=== PATIENT | male | born 1955 | race Caucasian/White ===

== ENCOUNTER 2017-05-11 00:15 | Emergency (ER) | payer OTHER ==
[2017-05-11 00:22] VITALS: RESP 16; TEMP 97.9
[2017-05-11] MEDS ORDERED: NS 1,000 ML IV ONE ×3 (00:23→03:42)
--- NOTE | 2017-05-11 00:24 | CPEKG ---
Heart Rate: 67 RR Interval: 896 P-R Interval: 192 QRSD Interval: 92 QT Interval: 400 QTC Interval: 423 P [place]: 61 QRS [place]: 78 T Wave [place]: 65 EKG Severity - NORMAL ECG - EKG Impression: SINUS RHYTHM Electronically Signed By: Neal Archuleta 13-May-2017 06:39:48
--- NOTE | 2017-05-11 00:29 | EDPHY ---
H & P Stated Complaint: syncope Time Seen by Provider: 05/11/17 00:25 HPI/ROS: HPI CHIEF COMPLAINT: Syncope, head injury. HISTORY OF PRESENT ILLNESS: Patient is a very pleasant 61-year-old male, he does have a history of MS, presents emergency room by EMS after he had a syncopal episode in the bathroom. The was asleep and heard a thud in the bathroom and found him on the ground he was in a spine position he had head strike against the ground. He sustained a right posterior head hematoma. The patient does not remember going to the bathroom or using the bathroom or the events after he fell. He does not remember falling. He denies chest pain or shortness of breath, denies palpitations. Denies focal weakness. Patient does not recall any the events. He reports to me that he had a rather normal day, no strenuous activity, however he does state that he had wine and Tequila this evening. Denies any current complaints except a right posterior headache very mild 3/10. He arrives by EMS stable vital signs. reports that he falls on average 4 times a year. He denies any cardiovascular disease or history of DC or CVA. Past Medical History: MS Past Surgical History: No recent surgery Social History: A lives locally, at bedside, presents by EMS, alcohol this evening, denies illicit drugs. Family History: Noncontributory ROS REVIEW OF SYSTEMS: A comprehensive 10 point review of systems is otherwise negative aside from elements mentioned in the history of present illness. Exam Constitutional appears nontoxic, triage nursing summary reviewed, vital signs reviewed, awake/alert. Vital signs stable Eyes normal conjunctivae and sclera, EOMI, PERRLA. HENT head/neck: Right occiput shows a right scalp hematoma, no midline cervical spine pain or step-offs, otherwise atraumatic head and neck exam moist mucus membranes, no epistaxis, neck supple/ no meningismus, no raccoon eyes. Respiratory clear to auscultation bilaterally, normal breath sounds, no respiratory distress, no wheezing. Cardiovascular rate normal, regular rhythm, no murmur, no edema, distal pulses normal. Gastrointestinal soft, non-tender, no rebound, no guarding, normal bowel sounds, no distension, no pulsatile mass. Genitourinary no CVA tenderness. Musculoskeletal no midline vertebral tenderness, full range of motion, no calf swelling, no tenderness of extremities, no meningismus, good pulses, neurovascularly intact. Skin pink, warm, & dry, no rash, skin atraumatic. Neurologic awake, alert and oriented x 3, AAOx3, moves all 4 extremities equally, motor intact, sensory intact, CN II-XII intact, normal cerebellar, normal vision, normal speech. Psychiatric normal mood/affect. Heme/Lymph/Immune no lymphadenopathy. 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 Impression time of EKG 0020: This is sinus rhythm rate of 67, no ST elevation no ST depression no significant T-wave abnormalities. No signs of cardiac arrhythmia. No WPW or Brugada. 1232: We did check orthostatic vital signs when the patient goes from lying to standing the blood pressure goes from 0120 systolic laying 80 systolic standing. This is a 40 point drop with positional changes, he heart rate went from 60s to 80s. Lying to standing. These indicate positive orthostatic vital signs. This most likely the cause of his syncopal episode while urinating. Will aggressively hydrate here in emergency room and repeat. CT head without contrast and CT cervical spine without contrast negative for acute traumatic injury. There is soft tissue hematoma noted over the right scalp. No subdural, no skull fracture. Called to me by Dr. Garcia 0234: Patient resting comfortably. He did receive 2 L here in the emergency room for significant orthostatic hypotension is repeat orthostatics are much improved. Still feels a little lightheaded. Currently is getting 3 L fluid will re-evaluate. He has no chest pain or shortness of breath. There has been no signs of cardiac arrhythmia on the monitor. Plan for re-evaluation after 3rd L. Blood work has been reviewed is unremarkable. CTs are negative for acute bleed. Scalp hematoma noted. 0300: Patient re-evaluated. He ambulated well throughout the emergency room with a steady gait. He states he feels fine. He denies feeling lightheadedness. Has no chest pain or shortness of breath. Does not feel like he is going to pass out. He would like to go home. EKG interpretation by me on record in [facility] system. Impression this is a repeat EKG time a repeat EKG 2:57 a.m., sinus rhythm rate of 70 no acute ischemic changes on the EKG or signs of cardiac arrhythmia. Source: Patient, EMS - Personal History Current Tetanus/Diphtheria Vaccine: Unsure Current Tetanus Diphtheria and Acellular Pertussis (TDAP): Unsure - Medical/Surgical History Hx Asthma: No Hx Chronic Respiratory Disease: No Hx Diabetes: No Hx Cardiac Disease: No Hx Renal Disease: No Hx Cirrhosis: No Hx Alcoholism: No Hx HIV/AIDS: No Hx Splenectomy or Spleen Trauma: No Other PMH: depression, MS - Social History Smoking Status: Never smoked Constitutional: Initial Vital Signs Temperature (C) 36.6 C 05/11/17 00:18 Heart Rate 68 05/11/17 00:18 Respiratory Rate 16 05/11/17 00:18 Blood Pressure 111/71 05/11/17 00:18 O2 Sat (%) 100 05/11/17 00:18 O2 Delivery Mode Room Air Allergies/Adverse Reactions: Tetanus Vaccines and Toxoid Allergy (Verified 05/07/17 11:52) Other-Enter Comments Home Medications: Medication Instructions Recorded Cholecalciferol (Vitamin D3) 05/07/17 Lexapro 05/07/17 Tizanidine HCl 05/07/17 Tysabri 05/07/17 Vitamin A 05/07/17 Vitamin B Complex/Folic Acid 05/07/17 Medical Decision Making - Data Points Laboratory Results: Laboratory Results 05/11/17 00:20 05/11/17 00:20 05/11/17 05/11/17 05/11/17 03:00 00:20 00:20 WBC RBC Hgb Hct MCV MCH MCHC RDW Plt Count MPV Neut % (Auto) Lymph % (Auto) [place] % (Auto) Eos % (Auto) Baso % (Auto) Nucleat RBC Rel Count Absolute Neuts (auto) Absolute Lymphs (auto) Absolute Monos (auto) Absolute Eos (auto) Absolute Basos (auto) Absolute Nucleated RBC Immature Gran % Immature Gran # PT 13.8 SEC SEC (12.0-15.0) INR 1.04 (0.83-1.16) APTT 26.1 SEC SEC (23.0-38.0) Sodium 145 mEq/L mEq/L (135-145) Potassium 4.1 mEq/L mEq/L (3.5-5.2) Chloride 109 mEq/L mEq/L (97-110) Carbon Dioxide 26 mEq/l mEq/l (22-31) Anion Gap 10 mEq/L mEq/L (8-16) BUN 11 mg/dL mg/dL (7-23) Creatinine 0.8 mg/dL mg/dL (0.7-1.3) Estimated GFR > 60 Glucose 95 mg/dL mg/dL (70-100) Calcium 9.1 mg/dL mg/dL (8.5-10.4) Magnesium 1.9 mg/dL mg/dL (1.6-2.3) Total Bilirubin 0.4 mg/dL mg/dL (0.1-1.4) Conjugated Bilirubin 0.2 mg/dL mg/dL (0.0-0.5) Unconjugated Bilirubin 0.2 mg/dL mg/dL (0.0-1.1) AST 22 IU/L IU/L (17-59) ALT 44 IU/L IU/L (21-72) Alkaline Phosphatase 55 IU/L IU/L (38-126) Creatine Kinase 101 IU/L IU/L (0-224) CK-MB (CK-2) Fraction 1.89 ng/mL ng/mL (0.00-3.19) Troponin I < 0.012 ng/mL ng/mL < 0.012 ng/mL ng/mL (0.000-0.034) (0.000-0.034) NT-Pro-B Natriuret Pep 128 pg/mL H pg/mL (0-125) Total Protein 6.3 g/dL g/dL (6.3-8.2) Albumin 3.9 g/dL g/dL (3.5-5.0) Ethyl Alcohol 56 mg/dL H mg/dL (0-10) 05/11/17 00:20 WBC 8.05 10^3/uL 10^3/uL (3.80-9.50) RBC 4.46 10^6/uL 10^6/uL (4.40-6.38) Hgb 14.4 g/dL g/dL (13.7-17.5) Hct 40.2 % % (40.0-51.0) MCV 90.1 fL fL (81.5-99.8) MCH 32.3 pg pg (27.9-34.1) MCHC 35.8 g/dL g/dL (32.4-36.7) RDW 12.7 % % (11.5-15.2) Plt Count 200 10^3/uL 10^3/uL (150-400) MPV 10.3 fL fL (8.7-11.7) Neut % (Auto) 41.1 % % (39.3-74.2) Lymph % (Auto) 50.1 % H % (15.0-45.0) [place] % (Auto) 6.5 % % (4.5-13.0) Eos % (Auto) 1.5 % % (0.6-7.6) Baso % (Auto) 0.4 % % (0.3-1.7) Nucleat RBC Rel Count 0.2 % % (0.0-0.2) Absolute Neuts (auto) 3.32 10^3/uL 10^3/uL (1.70-6.50) Absolute Lymphs (auto) 4.03 10^3/uL H 10^3/uL (1.00-3.00) Absolute Monos (auto) 0.52 10^3/uL 10^3/uL (0.30-0.80) Absolute Eos (auto) 0.12 10^3/uL 10^3/uL (0.03-0.40) Absolute Basos (auto) 0.03 10^3/uL 10^3/uL (0.02-0.10) Absolute Nucleated RBC 0.02 10^3/uL H 10^3/uL (0-0.01) Immature Gran % 0.4 % % (0.0-1.1) Immature Gran # 0.03 10^3/uL 10^3/uL (0.00-0.10) PT INR APTT Sodium Potassium Chloride Carbon Dioxide Anion Gap BUN Creatinine Estimated GFR Glucose Calcium Magnesium Total Bilirubin Conjugated Bilirubin Unconjugated Bilirubin AST ALT Alkaline Phosphatase Creatine Kinase CK-MB (CK-2) Fraction Troponin I NT-Pro-B Natriuret Pep Total Protein Albumin Ethyl Alcohol Medications Given: Discontinued Medications Sodium Chloride (Ns) 1,000 mls @ 0 mls/hr IV EDNOW ONE; Wide Open PRN Reason: Protocol Stop: 05/11/17 00:24 Last Admin: 05/11/17 00:26 Dose: 1,000 mls Departure - Departure Disposition: Home, Routine, Self-Care Clinical Impression: Syncope Qualifiers: Syncope type: unspecified Qualified Code(s): R55 - Syncope and collapse Scalp hematoma Qualifiers: Encounter type: initial encounter Qualified Code(s): S00.03XA - Contusion of scalp, initial encounter Condition: Good Instructions: Dehydration (ED), Syncope (ED), Contusion in Adults (ED), Hematoma (ED) Additional Instructions: 1. Stay well-hydrated drink lots of fluids. 2. Take it easy over the next few days. 3. Return emergency room if you have worsening symptoms questions or concerns or pass out developed chest pain or shortness of breath. Referrals: Patient,NotPresent [Unknown] - As per Instructions
[2017-05-11 00:48] LABS: CREATINE KINASE 101 IU/L (0-224)
[2017-05-11 00:57] LABS: PLATELET COUNT 200 10^3/uL (150-400)
[2017-05-11 01:00] LABS: INR 1.04 (0.83-1.16); PROTIME(PATIENT) 13.8 SEC (12.0-15.0)
--- NOTE | 2017-05-11 02:59 | CPEKG ---
Heart Rate: 70 RR Interval: 857 P-R Interval: 188 QRSD Interval: 86 QT Interval: 392 QTC Interval: 423 P [place]: 53 QRS [place]: 79 T Wave [place]: 63 EKG Severity - NORMAL ECG - EKG Impression: SINUS RHYTHM Electronically Signed By: Neal Archuleta 13-May-2017 06:39:44
[2017-05-11 03:46] VITALS: BP 119/74; PULSE 72; O2SAT 98
== END 2017-05-11 03:46 | disposition home or self-care (01) ==
LOC: EDUNIT#
DX: S00.03XA Contusion of scalp, initial encounter (principal); R55 Syncope and collapse; E86.9 Volume depletion, unspecified; W01.198A Fall on same level from slipping, tripping and stumbling with subsequent striking against other object, initial encounter; Y92.002 Bathroom of unspecified non-institutional (private) residence as the place of occurrence of the external cause; Y99.8 Other external cause status; Y93.89 Activity, other specified
CPT/HCPCS: G0480